=== PATIENT | female | born 1980 | race Caucasian/White ===

== ENCOUNTER 2016-10-01 03:19 | Emergency (ER) | payer SELFPAY ==
[~2016-10-01] VITALS: Ht 157.5 cm; Wt 68.0 kg
[2016-10-01] MEDS ORDERED: ONDANSETRON HCL 4MG/2ML VIAL IV STA (04:05)
[2016-10-01] MEDS ORDERED: SODIUM CHLORIDE 0.9% 1,000 ML IV ONE (04:05)
[2016-10-01] MEDS ORDERED: TETANUS, DIPHTHERIA, PERTUSSIS VAC/PF 0.5ML (>7YR OLD) IM ONE (04:15)
[2016-10-01] MEDS ORDERED: LIDOCAINE HCL/EPINEPHRINE 1%-EPI 1:100,000 20 ML VIAL INFIL ONE (04:15)
[2016-10-01] MEDS ORDERED: BACITRACIN ZINC OINT UDPKT TOP ONE ×2 (04:15)
[2016-10-01] MEDS ORDERED: FENTANYL CITRATE/PF 50MCG/ML 2ML VIAL IV ONE (04:15)
[2016-10-01] MEDS ORDERED: LIDOCAINE HCL 1%/EPI 1:200,000 30 ML VIAL MC ONE (04:15)
[2016-10-01] MEDS ORDERED: IBUPROFEN 600MG TABLET PO ONE (04:15)
[2016-10-01] MEDS ORDERED: CEFAZOLIN 1000MG PREMIX 50 ML IV ONE (04:15)
[2016-10-01 04:34] LABS: CHLORIDE 114 mEq/L (98-107)
[2016-10-01 04:39] LABS: BASOPHILS % 0.6 % (0.0-2.0); EOSINOPHILS % 0.5 % (0.0-5.0); HEMOGLOBIN. 14.9 g/dL (12.0-16.0); LYMPHOCYTES % 13.1 % (20.0-50.0); MEAN CORPUSCULAR HEMOGLOBIN 32.2 pg (28.0-32.0); MEAN CORPUSCULAR VOLUME 95.1 fL (81.0-99.0); MEAN PLATELET VOLUME 7.8 fl (7.4-10.4); MONOCYTES % 5.6 % (2.0-8.0); NEUTROPHILS % 80.2 % (40.0-76.0); PLATELET 278 x1000/uL (130-400); RED BLOOD CELL COUNT 4.63 mill/uL (4.2-5.4); RED CELL DISTRIBUTION WIDTH 13.8 % (11.6-14.6)
[2016-10-01 04:40] LABS: CARBON DIOXIDE 22 mEq/L (21-32)
[2016-10-01 06:50] VITALS: BP 132/76
== END 2016-10-01 08:37 | disposition home or self-care (01) ==
LOC: ER 03:19
DX: S01.81XA Laceration without foreign body of other part of head, initial encounter (principal); S16.1XXA Strain of muscle, fascia and tendon at neck level, initial encounter; V49.49XA Driver injured in collision with other motor vehicles in traffic accident, initial encounter; Y93.89 Activity, other specified; Y92.89 Other specified places as the place of occurrence of the external cause; Y99.8 Other external cause status
CPT/HCPCS: 12013; 36415; 70450; 70486; 71010; 72125; 80048; 81025; 85025; 86850; 86900; 86901; 90471; 90715; 96361; 96365; 96375; 99291; J0690; J2405; J3010; J3490; J7030; X7700; Z7610